=== PATIENT | female | born 1975 | race Caucasian/White ===

== ENCOUNTER 2020-11-09 16:39 | Inpatient (IN) | payer BC, OTHER ==
[~2020-11-09] VITALS: Ht 167.6 cm; Wt 144.2 kg
[~2020-11-09 16:39] MED LIST: BENTYL 20MG TAB20 MG PO; IBUPROFEN600 MG PO; NORFLEX 100 MG100 MG PO; REGLAN10 MG PO
[2020-11-09 17:07] LABS: HEMOGLOBIN 12.3 gm/dl (12.3-15.3); RED BLOOD COUNT 4.2 M/UL (4.00-5.10); WHITE BLOOD COUNT 6.4 K/UL (4.5-11.0)
[2020-11-09] MEDS ORDERED: TRANDATE 100 M100 MG PO (18:02)
[2020-11-12] MEDS ORDERED: IBUPROFEN600 MG PO (08:23)
[2020-11-12] MEDS ORDERED: DOCUSATE SODIU250 MG PO (08:23)
[2020-11-13 10:26] LABS: HEMOGLOBIN 10.5 gm/dl (12.3-15.3)
== END 2020-11-13 12:26 | disposition home or self-care (01) | DRG 807 ==
LOC: GENOP 16:39 → OB 16:51
PROVIDERS: Obstetrics & Gynecology; ADMIT Obstetrics & Gynecology
PROC: 4A1HXCZ Monitoring of Products of Conception, Cardiac Rate, External Approach (ICD-10-PCS; 2020-11-09)
PROC: 3E033VJ Introduction of Other Hormone into Peripheral Vein, Percutaneous Approach (ICD-10-PCS; 2020-11-09)
PROC: 10E0XZZ Delivery of Products of Conception, External Approach (ICD-10-PCS; principal; 2020-11-12)
PROC: 0KQM0ZZ Repair Perineum Muscle, Open Approach (ICD-10-PCS; 2020-11-12)
PROC: 0U7C7ZZ Dilation of Cervix, Via Natural or Artificial Opening (ICD-10-PCS; 2020-11-12)
PROC: 10907ZC Drainage of Amniotic Fluid, Therapeutic from Products of Conception, Via Natural or Artificial Opening (ICD-10-PCS; 2020-11-12)
PROC: 3E02340 Introduction of Influenza Vaccine into Muscle, Percutaneous Approach (ICD-10-PCS; 2020-11-12)
DX: O13.4 Gestational [pregnancy-induced] hypertension without significant proteinuria, complicating childbirth (principal); Z37.0 Single live birth; O99.214 Obesity complicating childbirth; E66.9 Obesity, unspecified; Z20.822 Contact with and (suspected) exposure to COVID-19; Z3A.37 37 weeks gestation of pregnancy; O70.1 Second degree perineal laceration during delivery; Z23 Encounter for immunization
CPT/HCPCS: 36415; 51702; 81001; 82800; 85014; 85018; 85025; J0360; J0595; J1650; J2405; J2590; J2795; J3430; J7120; U0003